=== PATIENT | male | born 1950 | race Caucasian/White ===

== ENCOUNTER → 2016-12-16 | Outpatient (CLI) | payer MEDICARE ==
[~2016-12-16] MED LIST: AMLODIPINE BES10 MG PO; ASPIRIN 325MG325 MG PO; BISOPROLOL/HCTZ1 TA3 PO; CLOPIDOGREL75 M2 PO; CLOPIDOGREL75 MG PO; CRESTOR20 MG PO; DOXAZOSIN MESYLA1 MG NG; NITROGLYCERIN0.4 MG SL
--- NOTE | 2016-12-16 10:45 | CARDIOVASCULAR REPORT ---
"Cerebrovascular Exam Indications: 785.9 Bruit. IMPRESSIONS 1. The bilateral vertebral arteries are patent with normal antegrade flow. 2. Study suggests less than 20% stenosis involving the right internal carotid artery and the left internal carotid artery. No change from the study of 28-Feb-2002. History: Coronary artery disease. Risk factors: Hypertension. Dyslipidemia. Carotid duplex study. Complete study and Doppler flow study including spectral analysis, color and vidal scale imaging. Height: Height: 177.8cm. Height: 70in. Weight: Weight: 83.9kg. Weight: 184.6lb. Body mass index: BMI: 26.5kg/m^2. Body surface area: BSA: 2.05m^2. Tables: Arterial flow: + +--------+--------+ |Location |V sys |V ed | + +--------+--------+ |Right CCA - proximal|69.1cm/s|17.3cm/s| + +--------+--------+ |Right CCA - distal |80.1cm/s|22cm/s | + +--------+--------+ |Right ECA |118cm/s |--------| + +--------+--------+ |Right ICA - proximal|67.6cm/s|15.7cm/s| + +--------+--------+ |Right ICA - mid |70.7cm/s|25.9cm/s| + +--------+--------+ |Right ICA - distal |87.2cm/s|32.2cm/s| + +--------+--------+ |Right vertebral |44.8cm/s|--------| + +--------+--------+ |Left CCA - proximal |88.8cm/s|18.1cm/s| + +--------+--------+ |Left CCA - distal |69.9cm/s|17.3cm/s| + +--------+--------+ |Left ECA |104cm/s |--------| + +--------+--------+ |Left ICA - proximal |66cm/s |14.1cm/s| + +--------+--------+ |Left ICA - mid |62.9cm/s|20.4cm/s| + +--------+--------+ |Left ICA - distal |66cm/s |23.6cm/s| + +--------+--------+ |Left vertebral |40.1cm/s|--------| + +--------+--------+ Velocity ratios: + + + + + + | |Right, V sys|Right, V ed|Left, V sys|Left, V ed| + + + + + + |Max ICA/dist CCA|1.09 |1.46 |0.94 |1.36 | + + + + + + (Report amended ) Electronically signed by: Cortes Carmona [id number]"
== END ==
LOC: RT 09:54
DX: R09.89 Other specified symptoms and signs involving the circulatory and respiratory systems (principal)

== ENCOUNTER → 2017-07-07 | Outpatient (CLI) | payer MEDICARE ==
--- NOTE | 2017-07-07 13:24 | RADIOLOGY REPORT PS360 ---
History and Indications: Coronary artery disease, but possibility, hypertension,, chronic tobacco use, family history, chest, shortness of breath and syncope Procedure: Patient received 0.4 mg of Lexiscan, resting heart rate was 45 bpm, resting blood pressure 149/69, with Lexiscan maximum heart rate achieved was 68 bpm which is less than 85% of the maximum predicted heart rate and a blood pressure was 143/71. With Lexiscan patient complained of shortness of breath. Electrocardiogram: Resting electrocardiogram showed sinus bradycardia possible inferior infarct age indeterminate, with Lexiscan there is less than 1.[address] segment depression noted from the baseline EKG. The EKG portion of the Lexiscan Myoview is nondiagnostic. Cardiac stress and resting SPECT images: Cardiac stress and rest SPECT images were obtained using technetium 99 Myoview 10.7 mCi at rest and 31.8 mCi at stress, gated SPECT further analysis of segmental wall motion and calculation of the ejection fraction was also done. Cardiac stress and rest SPECT images show decreased tracer activity in the inferolateral wall which improves on the resting images suggestive of reversible ischemia in that area. Computer derived ejection fraction is 56% with mild inferolateral wall hypokinesis, right ventricle is mildly enlarged with normal contractility. Conclusion: 1. The EKG portion of the Lexiscan Myoview is nondiagnostic. 2. Scintigraphic evidence of reversible ischemia involving the inferolateral wall, computer derived ejection fraction is 56% with segmental wall motion abnormality described above, right ventricle is mildly enlarged with normal contractility. 3. Abnormal Lexiscan Myoview study.
--- NOTE | 2017-07-07 13:42 | RADIOLOGY REPORT PS360 ---
PROCEDURE: 2-D M-mode and color Doppler study INDICATIONS FOR THE TEST: Chest pain X COPD Heart Murmur Tobacco SmokingX Palpitations Fatigue Syncope Edema Hypertension Diabetes Mellitus Rheumatic Fever SOB DOEXObesity Hyperlipidemia Family History HD Additional History CAD PATIENT INFORMATION HEIGHT: 70 WEIGHT:180 GENDER: Male B/P:140/70 2-D/M-MODE INTERPRETATION: 2-D MEASUREMENTS OBSERVED VALUES IN CMS Right Ventricular Dimension (RVDd) 2.7 Interventricular Septum (Thickness)(IVsd) 1.0 Left Ventricular Internal Dimensions(LVIDd) 5.6 Left Ventricular Posterior Wall (Thickness)(LVPWd) .6 Aortic Root 3.5 Aortic Cusp Separation 1.2 Left Atrial Dimensions (LAD) 4.4 2D 1. Left atrium is moderately enlarged, left ventricle is normal size, there is no concentric left ventricular hypertrophy, visually estimated ejection fraction 50%, there is moderate hypokinesis involving the inferior, inferobasal and inferolateral wall. 2. The right atrium is moderately enlarged, right ventricle is mildly dilated with normal contractility. 3. The aortic valve is minimally thickened and fibrosed. 4. The mitral and tricuspid valve leaflets are minimally thickened. 5. The pulmonic valve is poorly visualized. 6. No significant pericardial effusion noted. DOPPLER INTERROGATION: Doppler interrogation of the aortic, mitral and tricuspid valve is presence of mild mitral and tricuspid regurgitation, calculated right ventricular systolic pressure 50 mmHg consistent with moderate pulmonary hypertension, tissue Doppler is indicated of raised left atrial pressure. CONCLUSION: 1. Moderate biatrial enlargement, normal left ventricular size, mild concentric left ventricular hypertrophy, visually estimated ejection fraction 50% with segmental wall motion abnormality described above, tissue Doppler evidence of raised left atrial pressure. 2. Mildly enlarged right ventricle with normal contractility. 3. Mild mitral and tricuspid regurgitation, calculated right ventricular systolic pressure is 50 mmHg consistent with moderate pulmonary hypertension.
== END ==
LOC: RAD 05:56
DX: I20.8 Other forms of angina pectoris (principal)
CPT/HCPCS: A9502; J2785